=== PATIENT | female | born 1955 | race Two or more races ===

== ENCOUNTER 2019-02-16 12:16 | Outpatient (CLI) | payer OTHER | END 2019-02-16 12:45 | disposition home or self-care (01) | LOC: RAD 12:16 | DX: M12.861 Other specific arthropathies, not elsewhere classified, right knee (principal); M12.862 Other specific arthropathies, not elsewhere classified, left knee ==

== ENCOUNTER → 2019-03-30 | Outpatient (CLI) | payer OTHER | END | disposition home or self-care (01) | LOC: MRI 08:15 | DX: M25.561 Pain in right knee (principal); M25.562 Pain in left knee | CPT/HCPCS: 73721 ==

== ENCOUNTER 2020-12-04 10:14 | Outpatient (CLI) | payer OTHER | END 2020-12-04 10:28 | disposition home or self-care (01) | LOC: SONOGRAMA 10:14 | PROVIDERS: ATTEND Internal Medicine Cardiovascular Disease | DX: M25.552 Pain in left hip (principal); M25.551 Pain in right hip; M51.37 Other intervertebral disc degeneration, lumbosacral region; I10 Essential (primary) hypertension; R10.84 Generalized abdominal pain ==

== ENCOUNTER 2020-12-19 12:32 | Outpatient (CLI) | payer OTHER | END 2020-12-19 12:48 | disposition home or self-care (01) | LOC: MAMO-SONO 12:32 | PROVIDERS: ATTEND Internal Medicine Cardiovascular Disease | DX: N64.89 Other specified disorders of breast (principal); Z12.31 Encounter for screening mammogram for malignant neoplasm of breast ==

== ENCOUNTER 2023-07-29 13:51 | Outpatient (CLI) | payer OTHER | END 2023-07-29 13:59 | disposition home or self-care (01) | LOC: RAD 13:51 | PROVIDERS: ATTEND Surgery Surgery of the Hand | DX: M15.0 Primary generalized (osteo)arthritis (principal) ==